=== PATIENT | male | born 1945 | race Caucasian/White ===

== ENCOUNTER 2020-06-29 15:44 | Outpatient (CLI) | payer MEDICARE, SELFPAY ==
--- NOTE | ~2020-06-29 | CT_ITS ---
EXAMINATION: CT abdomen pelvis wo/w con DATE: 06/29/2020 16:35 INDICATION: Difficulty urinating. Burning with urination. TECHNIQUE: Computed tomography (CT) of the abdomen and pelvis was performed with and without 130 cc O mnipaque 350 intravenous contrast. The dose-length product was 2425.17 mGy-cm. Automated exposure con trol and iterative reconstruction technique were employed. COMPARISON: None. FINDINGS: Lung bases are unremarkable. Heart size is normal. Small hiatal hernia. No no significant p leural or pericardial effusion. There is a 5.4 cm exophytic left renal cyst. No renal stones or urete ral stones. No hydronephrosis. Mild atherosclerosis. The liver, spleen, pancreas, right kidney are unremarkable. Ureters are normal in course and caliber. There is a 4.4 x 4.1 cm hypovascular left renal mass, consistent with renal cell carcinoma until pro brittany otherwise. Bladder is unremarkable. There is a right inguinal hernia containing nonobstructed sma ll bowel. No bowel obstruction. Colonic diverticulosis without evidence for diverticulitis. No lympha denopathy. There are multiple bilateral adrenal nodules, largest in the left adrenal gland measuring 2.3 cm. These may represent adrenal adenomas or metastatic disease. IMPRESSION: 1. 4.4 cm left renal mass, compatible with renal cell carcinoma until proven otherwise. 2: Bilateral adrenal nodules measuring up to 2.3 cm, adenomas versus metastatic disease. 3: Right inguinal hernia containing nonobstructed small bowel. 4: Gallstones. Reviewed, dictated and finalized at location A. ERER IMPRESSION: 1. 4.4 cm left renal mass, compatible with renal cell carcinoma until proven ot allen. 2: Bilateral adrenal nodules measuring up to 2.3 cm, adenomas versus metastatic disease. 3: Right inguinal hernia containing nonobstructed small bowel. 4: Gallstones.
[2020-06-29 16:13] LABS: Estimated Glomerular Filt Rate 37
== END 2020-06-29 15:45 | disposition home or self-care (01) ==
PROVIDERS: PCP Internal Medicine; Visit Provider Urology
DX: R39.89 Other symptoms and signs involving the genitourinary system (principal); D35.02 Benign neoplasm of left adrenal gland; K40.90 Unilateral inguinal hernia, without obstruction or gangrene, not specified as recurrent; K80.20 Calculus of gallbladder without cholecystitis without obstruction
CPT/HCPCS: 74178; Q9967